=== PATIENT | male | born 2000 | race Caucasian/White ===

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

== ENCOUNTER 2020-07-11 07:15 | Emergency (ER) | payer BC, OTHER ==
[~2020-07-11] VITALS: Ht 182.9 cm; Wt 66.0 kg
[2020-07-11 07:16] VITALS: BP 127/69
--- NOTE | 2020-07-11 07:42 | PHYS DOC ---
Past History Past Medical History: No Pertinent History Past Surgical History: No Surgical History Additional Smoking Information: Vape Alcohol Use: Occasionally Drug Use: None Adult General Chief Complaint Chief Complaint: NEAR SYCOPE HPI HPI Patient is a 20-year-old male presenting via POV for near syncope. Patient reports 2 days ago sitting in chair while getting his haircut at a friend's house when he started having prodromal/presyncopal symptoms such as lightheadedness, dizziness, sweats and feeling uneasy. He apparently had full loss of consciousness that was transient and self resolving and under 1 minute. EMS was called and evaluated patient, it was deemed he was dehydrated and he was given a 1 L fluid bolus at that time. Patient had been asymptomatic since but reports on his drive to work today, experiencing similar presyncopal symptoms while driving which concerned him. He pulled over, parked his car, and had family member drive him to the ER for evaluation. On arrival, he is asymptomatic at present. Patient is well-established with PCP, states he was started on 50 mg Zoloft on Saturday otherwise no other changes in health, no other daily medications or supplements, no other known congenital abnormalities or medical diagnoses. There is not a significant family medical history, he denies excessive caffeine use, he vapes but denies any nicotine use or other illicit drug use. Review of Systems Review of Systems Fourteen body systems of review of systems have been reviewed. See HPI for pertinent positives and negative responses, other rabago all other systems are negative, non-pertinent or non-contributory Allergies Allergies Allergies Coded Allergies Type Severity Reaction Last Updated Verified No Known Drug Allergies 03/21/19 No Physical Exam Physical Exam Constitutional: Well developed, well nourished, no acute distress, non-toxic appearance. HENT: Normocephalic, atraumatic, bilateral external ears normal, oropharynx mois t, no oral exudates, nose normal. Eyes: PERRLA, EOMI, conjunctiva normal, no discharge. Neck: Normal range of motion, no tenderness, supple, no stridor. Cardiovascular: Heart rate regular, sinus rhythm, no murmurs rubs or gallops Lungs & Thorax: Bilateral breath sounds clear to auscultation Abdomen: Bowel sounds normal, soft, no tenderness, no masses, no pulsatile masses. Nonsurgical abdomen, no peritoneal signs Skin: Warm, dry, no erythema, no rash. Back: No tenderness, no CVA tenderness. Extremities: No tenderness, no cyanosis, no clubbing, ROM intact, no edema. Neurologic: Alert and oriented X 3, cranial nerves II through XII intact, normal motor & sensory function, no focal deficits noted. Psychologic: Affect normal, judgement normal, mood normal. Current Patient Data Vital Signs Vital Signs Date Time Temp Pulse Resp B/P (MAP) Pulse Ox O2 Delivery O2 Flow Rate FiO2 07/11/20 07:16 97.0 60 16 127/69 (88) 100 Room Air Lab Results Laboratory Tests Test 07/11/20 07:30 07/11/20 07:37 White Blood Count 4.5 x10^3/uL Red Blood Count 4.55 x10^6/uL Hemoglobin 13.7 g/dL Hematocrit 42.0 % Mean Corpuscular Volume 92 fL Mean Corpuscular Hemoglobin 30 pg Mean Corpuscular Hemoglobin Concent 33 g/dL Red Cell Distribution Width 13.4 % Platelet Count 215 x10^3/uL Neutrophils (%) (Auto) 69 % Lymphocytes (%) (Auto) 21 % Monocytes (%) (Auto) 7 % Eosinophils (%) (Auto) 3 % Basophils (%) (Auto) 1 % Neutrophils # (Auto) 3.1 x10^3uL Lymphocytes # (Auto) 0.9 x10^3/uL Monocytes # (Auto) 0.3 x10^3/uL Eosinophils # (Auto) 0.1 x10^3/uL Basophils # (Auto) 0.0 x10^3/uL Sodium Level 139 mmol/L Potassium Level 4.3 mmol/L Chloride Level 104 mmol/L Carbon Dioxide Level 29 mmol/L Anion Gap 6 Blood Urea Nitrogen 16 mg/dL Creatinine 1.0 mg/dL Estimated GFR (Cockcroft-Gault) 95.3 Glucose Level 96 mg/dL Calcium Level 8.6 mg/dL Glucose (Fingerstick) 92 mg/dL EKG EKG EKG ordered and interpreted by myself at 0737 hrs. as sinus rhythm at 61 bpm, unremarkable intervals, no axis deviation, no acute ischemic findings, no STEMI Radiology/Procedures Radiology/Procedures PROCEDURE: CHEST AP ONLY XR CHEST 1V INDICATION: syncope . COMPARISON STUDY: 03/21/2019. FINDINGS: Lungs: Normal lung volume. No pulmonary mass or consolidation. The tracheobr onchial tree and hilar structures are normal. Pleura: No pleural effusion or pneumothorax. Heart and Mediastinum: The cardiomediastinal silhouette is normal. The great vessels of the thorax are normal. Bones and Soft Tissues: The bones and soft tissues are within normal limits. IMPRESSION: No acute cardiopulmonary process. Electronically signed by: Loyd Castle MD (07/11/2020 7:49 AM) [id number] Heart Score C/O Chest Pain: No HEART Score for Chest Pain: HEART Score for Chest Pain Response (Comments) Value History Slighlty/Non-Suspicious 0 ECG Normal 0 Age < 45 0 Risk Factors No Risk Factors 0 Troponin < Normal Limit 0 Total 0 Risk Factors: Risk Factors: DM, Current or recent (<one month) smoker, HTN, HLP, family history of CAD, obesity. Risk Scores: Risk Factors: DM, Current or recent (<one month) smoker, HTN, HLP, family history of CAD, obesity. Course & Med Decision Making Course & Med Decision Making Hemodynamically stable patient with grossly benign history and physical exam Comprehensive ER work-up pursued and grossly negative as well I discussed diagnosis of near syncope and recent syncope, I cannot exclude hypoglycemic episode or dysrhythmia. Patient also started Zoloft 3 days ago gino t has been shown to cause dizziness in a certain subset of patients Patient remains asymptomatic, ambulatory and well-appearing during ER evaluation. I discussed limited utility in further ER diagnostic work-up and/or need for admission, negative [place] and [place] syncope rules Joint decision to discontinue Zoloft and follow-up with primary care provider in upcoming 24 to 48 hours for repeat evaluation and to discuss next steps of care Strict return precautions were discussed with good understanding by patient, all questions and concerns addressed prior to ER departure in good condition Dragon Disclaimer Dragon Disclaimer This electronic medical record was generated, in whole or in part, using a voice recognition dictation system. Departure Departure: Impression: Primary Impression: Near syncope Disposition: 01 DC HOME SELF CARE/HOMELESS Condition: GOOD Referrals: GERSON LINARES MD (PCP) Patient Instructions: Syncope Additional Instructions: You were seen for syncope. You should make sure to drink plenty of fluids. It is unclear what caused your symptoms but your initial evaluation did not show any concerning symptoms or features. As discussed, you recently started Zoloft which could be contributory to your recent episodes. We both decided it would be best to stop this effective immediately and for you to follow-up with your primary care provider in upcoming 2 to 3 days for repeat evaluation. Return to the ED immediately if you develop worsening symptoms, chest pain, shortness of breath, numbness, tingling, weakness, vision change, or any other new or concerning symptoms. HAY VERGARA DO Jul 11, 2020 07:42
--- NOTE | 2020-07-11 07:52 | RAD ---
XR CHEST 1V INDICATION: syncope . COMPARISON STUDY: 03/21/2019. FINDINGS: Lungs: Normal lung volume. No pulmonary mass or consolidation. The tracheobronchial tree and hilar st ructures are normal. Pleura: No pleural effusion or pneumothorax. Heart and Mediastinum: The cardiomediastinal silhouette is normal. The great vessels of the thorax ar e normal. Bones and Soft Tissues: The bones and soft tissues are within normal limits. IMPRESSION: No acute cardiopulmonary process. Electronically signed by: Loyd Castle MD (07/11/2020 7:49 AM) [id number]
[2020-07-11 07:56] LABS: BASO % 1 % (0-3); EOS # 0.1 x10^3/uL (0.0-0.7); EOS % 3 % (0-3); HEMOGLOBIN 13.7 g/dL (13.0-17.5); LYMPH # 0.9 x10^3/uL (1.0-4.8); LYMPH % 21 % (24-48); MEAN CORPUSCULAR HEMOGLOBIN 30 pg (25-35); MEAN CORPUSCULAR HGB CONC 33 g/dL (31-37); MEAN CORPUSCULAR VOLUME 92 fL (79-100); MONO # 0.3 x10^3/uL (0.0-1.1); MONO % 7 % (0-9); NEUT # 3.1 x10^3uL (1.8-7.7); NEUT % 69 % (31-73); PLATELET COUNT 215 x10^3/uL (140-400); RED BLOOD COUNT 4.55 x10^6/uL (4.30-5.70); RED CELL DISTRIBUTION WIDTH 13.4 % (11.5-14.5); WHITE BLOOD COUNT 4.5 x10^3/uL (4.0-11.0)
[2020-07-11 08:00] LABS: CALCIUM 8.6 mg/dL (8.5-10.1); GFR 95.3; POTASSIUM 4.3 mmol/L (3.5-5.1)
--- NOTE | 2020-07-11 09:51 | EKG ---
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
== END 2020-07-11 08:33 | disposition home or self-care (01) ==
LOC: ER 07:15
DX: R55 Syncope and collapse (principal); R42 Dizziness and giddiness; F17.220 Nicotine dependence, chewing tobacco, uncomplicated
CPT/HCPCS: 36415; 71045; 80048; 82947; 85025; 93005; 99285